=== PATIENT | male | born 1975 | race African-American/Black ===

== ENCOUNTER 2021-03-11 18:14 | Emergency (ER) | payer BC ==
[~2021-03-11] VITALS: Ht 190.5 cm; Wt 83.9 kg
[2021-03-11 20:40] VITALS: BP 193/97
== END 2021-03-11 21:12 | disposition home or self-care (01) ==
LOC: ER 18:14
DX: M54.2 Cervicalgia (principal); I10 Essential (primary) hypertension; W01.0XXA Fall on same level from slipping, tripping and stumbling without subsequent striking against object, initial encounter; Y93.89 Activity, other specified; Y92.89 Other specified places as the place of occurrence of the external cause; Y99.8 Other external cause status

== ENCOUNTER 2021-08-19 09:21 | Emergency (ER) | payer BC ==
[~2021-08-19] VITALS: Ht 190.5 cm; Wt 77.1 kg
[2021-08-19 09:50] LABS: ABSOLUTE NEUTROPHILS 1.5 thou/uL (1.4-8.2); BASOPHILS 0.9 % (0.0-2.0); EOSINOPHILS 2.6 % (0.0-3.0); HEMATOCRIT 43.2 % (42.0-52.0); HEMOGLOBIN 14.8 gm/dL (14.0-18.0); LYMPHOCYTES 47.3 % (24.0-44.0); MCH 32.4 pg (26.0-34.0); MCHC 34.3 g/dL (28.0-37.0); MCV 94.3 fL (80.0-100.0); MONOCYTES 8.9 % (1.0-8.0); PLATELET COUNT 244 thou/uL (150-400); POLYS 40.3 % (36.0-66.0); RBC 4.58 mil/uL (4.50-6.00); RDW 13.9 % (10.5-14.5); WBC 3.8 thou/uL (4.0-11.0)
[2021-08-19 10:17] LABS: CREATININE 1.1 mg/dL (0.7-1.3); POTASSIUM 3.7 mmol/L (3.5-5.1)
[2021-08-19 12:41] LABS: AMP/METHAMP Negative (Negative); BARBITURATES Negative (Negative); BENZODIAZEPINES Negative (Negative); COCAINE Negative (Negative); METHADONE Negative (Negative); OPIATES Negative (Negative); PCP Negative (Negative)
[2021-08-19] MEDS ORDERED: MOBIC7.5 MG PO (13:22)
[2021-08-19 13:36] VITALS: BP 154/98
--- NOTE | 2021-08-19 13:58 | EKG ---
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 : 1975 Requested By: Feroz Moseley Order Number: [id number] MD: Ruben Gallagher Measurements Intervals [place] Rate: 78 P: 43 MD: 162 QRS: -30 QRSD: 106 T: 260 QT: 402 QTc: 458 Interpretive Statements Sinus rhythm Probable left atrial enlargement LVH with secondary repolarization abnormality No previous ECG available for comparison Electronically Signed On 08-19-2021 13:57:58 PC TECHNICIAN by Ruben Gallagher [email or web address] <ELECTRONICALLY SIGNED> By: Ruben Gallagher MD, [facility] 08/19/21 1357 0930 9 Ruben Gallagher MD, FACC /EPI
== END 2021-08-19 13:43 | disposition home or self-care (01) ==
LOC: ER 09:21
PROVIDERS: Student in an Organized Health Care Education/Training Program
DX: R55 Syncope and collapse (principal); I10 Essential (primary) hypertension; F12.90 Cannabis use, unspecified, uncomplicated; F17.200 Nicotine dependence, unspecified, uncomplicated; Z72.89 Other problems related to lifestyle